=== PATIENT | male | born 1960 | race Caucasian/White ===

== ENCOUNTER → 2016-08-24 | Outpatient (CLI) | payer OTHER ==
[~2016-08-24] MED LIST: ASPIRIN81 M1 PO; B-12500 MC1 PO; CARAFATE1 G1 PO; CARVEDILOL6.25 MG PO; CHLORTHALIDONE25 MG PO; COREG12.5 M1 PO; Carafate1 GM PO; DOXAZOSIN MESYLA1 MG PO; HYDR25T PO; HYDROCHLOROTH12.5 M3 PO; LIPITOR10 MG PO; LISINOPRIL2.5 MG PO; NAPROSYN500 MG PO; NAPROXEN500 MG PO; OMEPRAZOLE DR20 MG PO; OXYCODONE5 M1 PO; PERCOCET 325 MG1 TA2 PO; PERCOCET 325 MG1 TA5 PO; PRILOSEC20 M1 PO; PRILOSEC40 M1 PO; PROTONIX40 M1 PO; PT UNSURE OF MEDS; ZOFRAN4 MG PO
== END | disposition home or self-care (01) ==
LOC: ORTHO 03:26
DX: S82.001A Unspecified fracture of right patella, initial encounter for closed fracture (principal); X58.XXXA Exposure to other specified factors, initial encounter; Y93.89 Activity, other specified; Y92.89 Other specified places as the place of occurrence of the external cause; Y99.8 Other external cause status; M25.461 Effusion, right knee

== ENCOUNTER → 2016-10-30 | Outpatient (CLI) | payer OTHER | END | disposition home or self-care (01) | LOC: ORTHO 04:03 | DX: S82.041D Displaced comminuted fracture of right patella, subsequent encounter for closed fracture with routine healing (principal); M17.0 Bilateral primary osteoarthritis of knee; M23.42 Loose body in knee, left knee ==

== ENCOUNTER → 2016-11-17 | Outpatient (CLI) | payer OTHER ==
[2016-11-17 14:35] LABS: BASO % 0.3 % (0.0-1.0); EOS # 0.1 10*3/uL (0.0-0.4); EOS % 0.6 % (1.0-4.0); HEMATOCRIT 43.1 % (42.0-52.0); HEMOGLOBIN 13.8 g/dl (14.0-18.0); LYMPH # 2.3 10*3/uL (1.3-4.4); LYMPH % 22.9 % (27.0-41.0); MEAN CELL VOLUME 89.2 fl (80.0-94.0); MEAN CORPUSCULAR HGB 28.6 pg (27.0-31.0); MEAN PLATELET VOLUME 10.9 fl (9.6-12.3); MONO # 0.7 10*3/uL (0.1-1.0); MONO % 7.3 % (3.0-9.0); NEUT # 6.8 10*3/uL (2.3-7.9); NEUT % 68.5 % (47.0-73.0); PLATELET COUNT AUTOMATED 275 10*3/uL (130-400); RED BLOOD COUNT 4.83 10*6/uL (4.50-5.90); RED CELL DISTRI WIDTH 14.5 % (0-14.5); WHITE BLOOD COUNT 9.9 10*3/uL (4.8-10.8)
[2016-11-17 14:54] LABS: BILIRUBIN NEGATIVE (NEGATIVE); BLOOD TRACE-INTACT (NEGATIVE); CLARITY CLEAR (CLEAR); COLOR YELLOW (YELLOW); GLUCOSE NEGATIVE (NEGATIVE); KETONE NEGATIVE (NEGATIVE); LEUKO ESTERASE NEGATIVE (NEGATIVE); NITRITE NEGATIVE (NEGATIVE); PH 6.5 (5.0-9.0); PROTEIN NEGATIVE (NEGATIVE); UROBILINOGEN 0.2 E.U./dl (0.2-1.0)
[2016-11-17 15:02] LABS: BUN 17 mg/dl (7-24); CARBON DIOXIDE 29 mmol/L (21-32); CHLORIDE 104 mmol/L (98-107); EST GLOM FILT AFRICAN AMERICAN > 60 ml/min; GLUCOSE 82 mg/dL (65-99); POTASSIUM 4.1 mmol/L (3.5-5.1); SODIUM 140 mmol/L (136-145)
[2016-11-17 15:06] LABS: URINE REFLEX COMMENT NO (NO); WBC 0-2 wbc/hpf (0-5)
== END | disposition home or self-care (01) ==
LOC: LAB 13:01
PROVIDERS: Orthopaedic Surgery
DX: Z01.818 Encounter for other preprocedural examination (principal); I10 Essential (primary) hypertension

== ENCOUNTER → 2016-11-24 | Day surgery (SDC) | payer OTHER ==
[~2016-11-24] VITALS: Ht 170.1 cm; Wt 117.5 kg
[~2016-11-24] MED LIST changes: +NORCO 5-325 TA1 EACH PO
--- NOTE | ~2016-11-24 | O ---
[place], [place] OPERATIVE NOTE NAME: SELENE GODWIN [facility] #: [id number] UNIT #: [id number] ROOM: DOCTOR: RIGO RANDRYAN BIRTHDATE: [birth year] DOS: 11/24/2016 PREOPERATIVE DIAGNOSIS: Right ankle painful retained hardware tibia and fibula. POSTOPERATIVE DIAGNOSIS: Right ankle painful retained hardware tibia and fibula. OPERATIVE PROCEDURE: Right ankle removal of painful hardware tibia and fibula. SURGEON: Dr. Kimble. EDGE BANDER OPERATOR: Tye. ANESTHESIA: Almazan, BUYER BROKER; general with intubation. INDICATIONS: The patient is a 56-year-old male with a history of open reduction and internal fixation of the right ankle over 25 years ago. The hardware has become prominent, and the patient has developed some discomfort which is progressing at the ankle. The risks and benefits of the procedure were explained to the patient preoperatively. Preoperative labs and x-rays were obtained. PROCEDURE: The right lower extremity was marked in the holding room. The patient was brought to the operative suite. A timeout was performed. The patient was placed supine on the operative table. General anesthetic with intubation was performed. The patient received Ancef 2 grams IV piggyback preoperatively. The right lower extremity was prepped and draped in the usual orthopedic fashion. The C-arm was used to evaluate the right ankle and hardware. The extremity was exsanguinated. The tourniquet was inflated to 350 mmHg. The lateral ankle was marked with a marking pen. The area was injected with Marcaine 0.5% with epinephrine. The incision was made sharply with the scalpel. Subcutaneous tissue was spread down to the level of the orthopedic plate. Fibrous tissue was cleared from the edges of the 7-hole 1/3 tubular plate. Six screws were noted to be within the plate. These were removed manually with a screwdriver. The plate was then removed utilizing a Latham elevator. A rongeur was used to remove any ridges or excess bony formation above the plate. There was noted to be a single lag screw placed from anterior to posterior. This was removed using a screwdriver by hand. The area was copiously irrigated with normal saline. A curette was used to clear all of the screw holes. Any of the material obtained from the curetting was cultured. Attention was turned to the medial side. There were noted to be 2 partially threaded screws from the distal medial malleolus proximally and laterally. An incision was made sharply with the scalpel after the area had been injected with Marcaine 0.5% with epinephrine. Subcutaneous tissue was spread down to the level of the lateral malleolus. The screws were identified and removed manually with a screwdriver. In addition 2 washers were identified and removed using a hemostat. The bone was noted to be somewhat soft, and the screw holes were [place], [place] OPERATIVE NOTE NAME: SELENE GODWIN UNIT #: [id number] ROOM: DOCTOR: RYAN KIMBLE DO BIRTHDATE: [birth year] curetted and any curettings were sent for culture. The area was copiously irrigated with normal saline. X-rays were obtained in AP, lateral and mortise view confirming that no hardware remained within the right ankle. Both incisions were copiously irrigated with normal saline. The wounds were closed in a layered fashion using 2-0 Vicryl, 4-0 Vicryl and skin karlos. A bulky dry sterile dressing was applied including Xeroform, 4 x 4s, ABD's, cast padding and an DEANNA. Tourniquet was released prior to application of the dressing. The anesthetic was reversed. The patient was extubated and taken to the recovery room in satisfactory condition. Sponge and needle count correct. ESTIMATED BLOOD LOSS: Less than 5 mL. SPECIMENS: One 7-hole plate and 9 screws. Culture and Gram stain. DRAINS: None. PACKING: None. COMPLICATIONS: None. FINDINGS: Retained hardware, right ankle medial and lateral with prominence and pain. RYAN KIMBLE DO CM:OPRECORD:OPERATIVE NOTE [id number] RYAN KIMBLE DO 11/26/16929 interface
[2016-11-24 06:45] VITALS: BP 132/81
[2016-11-24 09:13] VITALS: BP 158/111
[2016-11-24 09:28] VITALS: BP 162/100
[2016-11-24 09:43] VITALS: BP 162/100
[2016-11-24 09:58] VITALS: BP 148/98
[2016-11-24 10:13] VITALS: BP 148/98
== END | disposition home or self-care (01) ==
LOC: SDC 11-17 13:15
DX: T84.84XA Pain due to internal orthopedic prosthetic devices, implants and grafts, initial encounter (principal); I12.9 Hypertensive chronic kidney disease with stage 1 through stage 4 chronic kidney disease, or unspecified chronic kidney disease; N18.1 Chronic kidney disease, stage 1; Z82.49 Family history of ischemic heart disease and other diseases of the circulatory system; E78.00 Pure hypercholesterolemia, unspecified; M19.90 Unspecified osteoarthritis, unspecified site; Z80.9 Family history of malignant neoplasm, unspecified; Z98.890 Other specified postprocedural states

== ENCOUNTER → 2017-02-24 | Outpatient (CLI) | payer OTHER | END | disposition home or self-care (01) | LOC: ORTHO 03:17 | DX: M17.12 Unilateral primary osteoarthritis, left knee (principal); M25.462 Effusion, left knee; Z98.890 Other specified postprocedural states ==

== ENCOUNTER → 2017-03-26 | Outpatient (CLI) | payer OTHER | END | disposition home or self-care (01) | LOC: MRI 07:54 | DX: S83.012A Lateral subluxation of left patella, initial encounter (principal); M25.462 Effusion, left knee; X58.XXXA Exposure to other specified factors, initial encounter; Y93.89 Activity, other specified; Y92.89 Other specified places as the place of occurrence of the external cause; Y99.8 Other external cause status ==

== ENCOUNTER → 2017-05-04 | Outpatient (CLI) | payer OTHER ==
[2017-05-04 08:55] LABS: BILIRUBIN NEGATIVE (NEGATIVE); BLOOD 2+ (NEGATIVE); CLARITY SL CLOUDY (CLEAR); COLOR YELLOW (YELLOW); GLUCOSE NEGATIVE (NEGATIVE); KETONE NEGATIVE (NEGATIVE); LEUKO ESTERASE TRACE (NEGATIVE); NITRITE NEGATIVE (NEGATIVE); PH 5.5 (5.0-9.0); UROBILINOGEN 0.2 E.U./dl (0.2-1.0)
[2017-05-04 08:56] LABS: BASO % 0.2 % (0.0-1.0); EOS % 0.1 % (1.0-4.0); HEMATOCRIT 42.8 % (42.0-52.0); HEMOGLOBIN 13.9 g/dl (14.0-18.0); LYMPH % 14.3 % (27.0-41.0); MEAN CELL VOLUME 87.7 fl (80.0-94.0); MEAN CORPUSCULAR HGB 28.5 pg (27.0-31.0); MEAN CORPUSCULAR HGB CONC 32.5 g/dl (33.0-37.0); MEAN PLATELET VOLUME 11.3 fl (9.6-12.3); MONO # 0.7 10*3/uL (0.1-1.0); MONO % 5.2 % (3.0-9.0); NEUT % 79.5 % (47.0-73.0); PLATELET COUNT AUTOMATED 281 10*3/uL (130-400); RED BLOOD COUNT 4.88 10*6/uL (4.50-5.90); RED CELL DISTRI WIDTH 14.6 % (0-14.5); WHITE BLOOD COUNT 13.8 10*3/uL (4.8-10.8)
[2017-05-04 09:17] LABS: BUN 15 mg/dl (7-24); CHLORIDE 105 mmol/L (98-107); CREATININE 1.12 mg/dL (0.70-1.30); POTASSIUM 4.4 mmol/L (3.5-5.1); SODIUM 139 mmol/L (136-145)
== END | disposition home or self-care (01) ==
LOC: LAB 08:20
PROVIDERS: Orthopaedic Surgery
DX: Z01.818 Encounter for other preprocedural examination (principal); S83.242A Other tear of medial meniscus, current injury, left knee, initial encounter; M22.42 Chondromalacia patellae, left knee; X58.XXXA Exposure to other specified factors, initial encounter; Y93.89 Activity, other specified; Y92.89 Other specified places as the place of occurrence of the external cause; Y99.8 Other external cause status

== ENCOUNTER → 2017-05-11 | Day surgery (SDC) | payer OTHER ==
[2017-05-04 07:54] VITALS: BP 145/86
[~2017-05-11] VITALS: Ht 170.1 cm; Wt 122.0 kg
[2017-05-11] VITALS (7 sets, daily range): BP systolic 138–164; BP diastolic 67–102
[~2017-05-11] MED LIST changes: +Percocet 325 MG1 TAB PO
--- NOTE | ~2017-05-11 | O ---
[place], [place] OPERATIVE NOTE [id number] UNIT #: [id number] ROOM: DOCTOR: RYAN KIMBLE DO BIRTHDATE: [birth year] DOS: 05/11/2017 PREOPERATIVE DIAGNOSIS: Left knee medial meniscus tear and chondromalacia. POSTOPERATIVE DIAGNOSES: Left knee patellar chondromalacia, lateral meniscus tear and patellar plica. OPERATIVE PROCEDURE: Left knee arthroscopy with debridement of the lateral meniscus, excision of the lateral patellar plica, chondroplasty of the patella. SURGEON: Ryan Kimble DO. OFFICE CHAIR ASSEMBLER: Prateek. INDICATIONS: The patient is a 56-year-old male with a history of left pain and disability about the knee, unrelieved with conservative care. Risks and benefits of the procedure were explained to the patient preoperatively. Preoperative labs and x-rays were obtained including preoperative MRI. The MRI indicated possible degenerative changes about the medial meniscus and mild chondromalacia. The risks and benefits were explained to the patient. PROCEDURE IN DETAIL: The left knee was marked in the holding room. The patient was brought to the operative suite. The general anesthetic with LMA intubation was performed. The left lower extremity was placed in a leg haywood. Timeout was performed. The left lower extremity was prepped and draped in usual orthopedic fashion. The area about the medial and lateral parapatellar portals were injected with Marcaine 0.25 with epinephrine. The lateral portal was created using a #11 blade followed by a blunt trocar and cannula. The trocar was removed. The cannula remained and the inflow and the outflow were established through the cannula. The arthroscopy camera was placed through the cannula as well. The medial portal was created using a spinal needle followed by #11 blade and a blunt trocar. The knee was evaluated in a systematic fashion. The medial compartment was noted to be intact to probing and visualization about the meniscus, no articular surface with essentially no degenerative findings noted. The notch was identified. The anterior cruciate ligament was probed and an anterior drawer test was performed and this was noted to be intact. Lateral compartment was identified and evaluated. There was noted to be minimal tearing of the mid portion of the lateral meniscus and this was debrided using a full radius resector. The articular surface was essentially intact. Patellofemoral joint was identified and evaluated. There was noted to be grade 1-2 chondromalacia about the patella. This was gently smoothed using the full radius resector. There was also noted to be a lateral patellar plica and this was excised using the full radius resector. An Arthrocare wand was then used to control any bleeding and also used to gently smooth the surface of the articular [place], [place] OPERATIVE NOTE NAME: SELENE GODWIN UNIT #: [id number] ROOM: DOCTOR: RYAN KIMBLE DO BIRTHDATE: [birth year] edge of the patella. The instrumentation was switched using the arthroscopy camera medially and instrumentation laterally. All compartments were again identified and evaluated. Further debridement was performed about the articular surface of the patella. No further repairable or debridable pathology was present, the instrumentation was removed. The knee was expressed of any excess fluid. The portals were closed loosely with 3-0 Prolene. Knee was again injected with Marcaine 0.25% with epinephrine. Xeroform, 4 x 4's, ABDs, cast padding and an Viktor bandage were used to complete the dressing. The anesthetic was reversed. The patient was extubated and taken to recovery room in satisfactory condition. Sponge and needle count correct. ESTIMATED BLOOD LOSS: 5 mL. DRAINS: None. PACKING: None. COMPLICATIONS: None. FINDINGS: Lateral meniscus tear, patellar chondromalacia grade 1-2 and lateral patellar plica. RYAN KIMBLE DO CM:OPRECORD:OPERATIVE NOTE [id number] RYAN KIMBLE DO 05/11/17 2249 interface
[2017-05-11 08:58] LABS: BILIRUBIN NEGATIVE (NEGATIVE); BLOOD TRACE-LYSED (NEGATIVE); CLARITY CLEAR (CLEAR); COLOR YELLOW (YELLOW); GLUCOSE NEGATIVE (NEGATIVE); KETONE NEGATIVE (NEGATIVE); LEUKO ESTERASE NEGATIVE (NEGATIVE); NITRITE NEGATIVE (NEGATIVE); PH 5.5 (5.0-9.0); SPECIFIC GRAVITY 1.025 (1.005-1.030); UROBILINOGEN 0.2 E.U./dl (0.2-1.0)
[2017-05-11 09:07] LABS: WBC 0-2 wbc/hpf (0-5)
== END | disposition home or self-care (01) ==
LOC: SDC 05-04 08:00
PROVIDERS: Orthopaedic Surgery
DX: S83.282A Other tear of lateral meniscus, current injury, left knee, initial encounter (principal); M22.42 Chondromalacia patellae, left knee; M67.52 Plica syndrome, left knee; I12.9 Hypertensive chronic kidney disease with stage 1 through stage 4 chronic kidney disease, or unspecified chronic kidney disease; N18.9 Chronic kidney disease, unspecified; K21.9 Gastro-esophageal reflux disease without esophagitis; E78.00 Pure hypercholesterolemia, unspecified; Z95.5 Presence of coronary angioplasty implant and graft; M19.90 Unspecified osteoarthritis, unspecified site; Z90.49 Acquired absence of other specified parts of digestive tract; Z98.890 Other specified postprocedural states; Z82.49 Family history of ischemic heart disease and other diseases of the circulatory system; Z80.9 Family history of malignant neoplasm, unspecified; X58.XXXA Exposure to other specified factors, initial encounter; Y93.89 Activity, other specified; Y99.8 Other external cause status; Y92.89 Other specified places as the place of occurrence of the external cause

== ENCOUNTER → 2017-11-03 | Outpatient (CLI) | payer OTHER | END | disposition home or self-care (01) | LOC: ORTHO 02:13 | DX: M25.551 Pain in right hip (principal); Z91.81 History of falling ==